=== PATIENT | female | born 1965 | race Caucasian/White ===

== ENCOUNTER 2020-11-04 06:20 | Day surgery (SDC) | payer OTHER ==
[~2020-11-04] VITALS: Ht 157.5 cm; Wt 68.5 kg
[2020-11-04] MEDS ORDERED: fentaNYL citrate 0.05 MG/ML VIAL ONE (08:11)
[2020-11-04] MEDS ORDERED: LIDOCAINE 2% 100 MG/5 ML UJET TP ONE (08:11)
[2020-11-04] MEDS ORDERED: fentaNYL citrate 0.05 MG/ML VIAL IVP ONE (08:35)
== END 2020-11-04 08:57 | disposition home or self-care (01) ==
LOC: MDS 06:20 → MMU 06:22 → MDS 08:57
PROVIDERS: ATTEND Internal Medicine Gastroenterology
DX: Z12.11 Encounter for screening for malignant neoplasm of colon (principal); K57.30 Diverticulosis of large intestine without perforation or abscess without bleeding; E78.00 Pure hypercholesterolemia, unspecified; Z90.49 Acquired absence of other specified parts of digestive tract; Z79.899 Other long term (current) drug therapy
CPT/HCPCS: 45378; J3010